=== PATIENT | female | born 1965 | race Caucasian/White ===

== ENCOUNTER 2019-02-18 07:28 | Emergency (ER) | payer MEDICAID ==
[~2019-02-18] VITALS: Ht 162.6 cm; Wt 93.0 kg
[~2019-02-18 07:28] MED LIST: METO25TA4; TRIA25CA; [UNRECOGNIZED DRUG - OTHER]
[2019-02-18] MEDS ORDERED: SODIUM CHLORIDE 0.9% 1,000 ML IV ONE (08:08)
[2019-02-18] MEDS ORDERED: IPRATROPIUM BROM 0.5 MG/2.5ML INH SOL NEB ONE (08:15)
[2019-02-18] MEDS ORDERED: ALBUTEROL SULF 2.5 MG/0.5ML(0.5%) NEB SOLN NEB ONE (08:15)
[2019-02-18 08:27] LABS: Basophils # (auto) 0.1 uL; Basophils % (auto) 0.8 % (0.0-2.0); Eosinophils # (auto) 0.1 uL; Eosinophils % (auto) 0.8 % (0.0-7.0); Hematocrit 39.1 % (36.0-46.0); Hemoglobin 13.3 g/dL (12.2-16.2); Lymphocytes % (auto) 20.2 % (10.0-50.0); Mean Corpuscular Hgb Conc. 34.1 g/dL (32.0-36.0); Mean Corpuscular Volume 93.6 fL (80.0-100.0); Monocytes % (auto) 10.3 % (0.0-12.0); Neutrophils # (auto) 6.7 uL; Neutrophils % (auto) 67.9 % (37.0-80.0); Nucleated Red Blood Cells % 0.1 %; Platelet Count (auto) 290 10^3/uL (140-450); Red Blood Cells 4.17 10^6/uL (4.0-5.20); Red Cell Distribution Width 13.1 % (11.8-14.3); White Blood Cell 9.9 10^3/uL (4.4-10.8)
[2019-02-18 08:43] LABS: Albumin 3.3 g/dL (3.4-5.0); BUN/Creatinine Ratio 15.8; Calcium 8.3 mg/dL (8.5-10.1); Magnesium 1.9 mg/dL (1.6-2.6)
[2019-02-18 09:12] LABS: Bilirubin, Total 0.7 mg/dL (0.2-1.0); Potassium 3.1 mmol/L (3.5-5.1); Total Protein 6.9 g/dL (6.4-8.2)
[2019-02-18 10:21] LABS: Urine Bacteria FEW /hpf (None Seen); Urine Blood Negative /uL (Negative); Urine Mucus FEW (None Seen); Urine Specific Gravity 1.026 (1.001-1.035); Urine WBC 1 /hpf (0 - 5)
[2019-02-18] MEDS ORDERED: POTASSIUM EFFERVESENT TAB 25 MEQ PO ONE (10:45)
[2019-02-18] MEDS ORDERED: ONDANSETRON HCL 4 MG/2 ML VIAL IV ONE (12:45)
[2019-02-18] MEDS ORDERED: SODIUM CHLORIDE 0.9% 1,000 ML IVB ONE (13:08)
[2019-02-18] MEDS ORDERED: POTASSIUM CHL 20 Meq TABLET PO ONE (14:00)
[2019-02-18] MEDS ORDERED: POTASSIUM CHLORIDE 8 MEQ TAB PO ONE (14:09)
[2019-02-18] MEDS ORDERED: POTASSIUM CHL 10 Meq TABLET PO ONE (14:15)
[2019-02-18 15:36] VITALS: BP 162/57
== END 2019-02-18 15:52 | disposition home or self-care (01) ==
LOC: ER 07:28
DX: J45.909 Unspecified asthma, uncomplicated (principal); R07.9 Chest pain, unspecified; E87.6 Hypokalemia; I10 Essential (primary) hypertension; M19.90 Unspecified osteoarthritis, unspecified site; G43.909 Migraine, unspecified, not intractable, without status migrainosus; E46 Unspecified protein-calorie malnutrition; Z68.35 Body mass index [BMI] 35.0-35.9, adult; Z79.899 Other long term (current) drug therapy; Z90.49 Acquired absence of other specified parts of digestive tract
CPT/HCPCS: 36415; 71046; 80053; 81001; 83735; 85025; 87804; 93005; 94640; 96374; 99284; J2405; J7030; J7611; J7644

== ENCOUNTER 2021-04-02 13:45 | Emergency (ER) | payer MEDICARE, MEDICAID ==
[~2021-04-02] VITALS: Ht 162.6 cm; Wt 86.2 kg
[2021-04-02 13:45] VITALS: BP 133/60
[~2021-04-02 13:45] MED LIST changes: +METO25TA36; -METO25TA4
== END 2021-04-02 16:05 | disposition home or self-care (01) ==
LOC: ER 13:45
DX: R21 Rash and other nonspecific skin eruption (principal); E11.9 Type 2 diabetes mellitus without complications; E78.5 Hyperlipidemia, unspecified; I10 Essential (primary) hypertension; Z90.49 Acquired absence of other specified parts of digestive tract; Z79.899 Other long term (current) drug therapy; Z98.890 Other specified postprocedural states

== ENCOUNTER 2023-06-30 08:33 | Inpatient (IN) | payer MEDICARE, MEDICAID ==
[~2023-06-30] VITALS: Ht 162.6 cm; Wt 92.9 kg
[2023-06-30] MEDS ORDERED: ONDANSETRON HCL 4 MG/2 ML VIAL IV ONE (09:15)
[2023-06-30] MEDS ORDERED: SODIUM CHLORIDE 0.9% 500 ML IV ONE (09:15)
[2023-06-30 09:23] LABS: Basophils # (auto) 0.2 10 ^3/uL (0-0.2); Basophils % (auto) 0.9 % (0.0-2.0); Eosinophils # (auto) 0 10 ^3/uL (0-0.8); Eosinophils % (auto) 0.1 % (0.0-7.0); Hemoglobin 15.1 g/dL (12.2-16.2); Lymphocytes # (auto) 4.8 10 ^3/uL (0.4-5.4); Lymphocytes % (auto) 25.3 % (10.0-50.0); Mean Corpuscular Hemoglobin 30.3 pg (28.0-32.0); Mean Corpuscular Hgb Conc. 33.4 g/dL (32.0-36.0); Mean Corpuscular Volume 90.8 fL (80.0-100.0); Monocytes # (auto) 1.6 10 ^3/uL (0-1.3); Monocytes % (auto) 8.6 % (0.0-12.0); Neutrophils # (auto) 12.3 10 ^3/uL (1.6-8.6); Neutrophils % (auto) 65.1 % (37.0-80.0); Nucleated Red Blood Cells % 0.1 %; Red Blood Cells 4.96 10^6/uL (4.0-5.20); Red Cell Distribution Width 13.4 % (11.8-14.3); White Blood Cell 18.8 10^3/uL (4.4-10.8)
[2023-06-30 09:40] LABS: Alanine Aminotransferase 75 U/L (7-40); Albumin 4.7 g/dL (3.2-4.8); Alkaline Phosphatase 101 U/L (46-116); Anion Gap 17 (5-15); Aspartate Aminotransferase 42 U/L (13-40); BUN/Creatinine Ratio 13.7 (10.0-20.0); Blood Urea Nitrogen 20 mg/dL (9-23); Calcium 9.9 mg/dL (8.5-10.1); Carbon Dioxide 20 mmol/L (20-30); Chloride 100 mmol/L (98-107); Glucose 200 mg/dL (74-106); Potassium 3.2 mmol/L (3.5-5.1); Sodium 137 mmol/L (136-145)
[2023-06-30 09:41] LABS: Bilirubin, Total 1.7 mg/dL (0.2-1.0); Total Protein 7.9 g/dL (5.7-8.2)
[2023-06-30] MEDS ORDERED: PROCHLORPERAZINE EDISYLATE 5 MG/ML 2ML VIAL IV ONE (11:00)
[2023-06-30] MEDS ORDERED: MORPHINE SULFATE 10 MG/ML INJ 1ML SDV IV ONE (11:00)
[2023-06-30] MEDS ORDERED: LACTATED RINGER'S 1,000 ML IV ONE (11:00)
[2023-06-30] MEDS ORDERED: IOHEXOL 300 MG/ML 100ML BOTTLE IJ ONE (11:06)
[2023-06-30] MEDS ORDERED: MORPHINE SULFATE INJ 2 MG/ml SYRG IV ONE (11:15)
[2023-06-30 11:21] LABS: Lactic Acid w/Reflex 4.3 mmol/L (0.4-2.0)
[2023-06-30 11:28] LABS: Urine Bacteria MANY /hpf (None Seen); Urine Blood Negative /uL (Negative); Urine Clarity HAZY (Clear); Urine Color Yellow (Yellow); Urine Hyaline Cast MOD /lpf (0 - 2); Urine Mucus FEW (None Seen); Urine Protein, UAD 1+ (Negative); Urine Specific Gravity 1.028 (1.001-1.035); Urine WBC 26 /hpf (0 - 5); Urine pH 5.5 (5.0-8.0)
[2023-06-30 11:54] LABS: Amphetamine Screen, Urine Neg (NEGATIVE); Barbiturate Scree,Urine Neg (NEGATIVE); Benzodiazephine Screen, Urine Neg (NEGATIVE); Cocaine Screen, Urine Neg (NEGATIVE); Opiate Scree,Urine Neg (NEGATIVE)
[2023-06-30 11:55] LABS: Cannabinoid Screen, Urine Pos (NEGATIVE); Phencyclidine Screen, Urine Neg (NEGATIVE)
[2023-06-30] MEDS ORDERED: metroNIDAZOLE 500MG/100ML 100 ML IV ONE (12:30)
[2023-06-30] MEDS ORDERED: CIPROFLOXACIN 400MG/200ML 200 ML IV ONE (12:30)
[2023-06-30] MEDS ORDERED: hydrALAZINE HCL 20 MG/ML VL IV PRN ×2 (12:45→13:00)
[2023-06-30] MEDS ORDERED: POTASSIUM EFFERVESENT TAB 25 MEQ PO ONE (13:00)
[2023-06-30] MEDS ORDERED: PANTOPRAZOLE 40 MG/10 ML VIAL INJ IV ONE (13:00)
[2023-06-30] MEDS ORDERED: SODIUM CHLORIDE 0.9% 1,000 ML IV ONE (13:00)
[2023-06-30] MEDS ORDERED: DEXTROSE (50%) 50ML SYRG IV PRN (13:00)
[2023-06-30] MEDS ORDERED: ONDANSETRON HCL 4 MG/2 ML VIAL IV PRN (13:00)
[2023-06-30] MEDS ORDERED: cefTRIAXone 1GM/50ML D5W 50 ML IV ONE (13:00)
[2023-06-30] MEDS ORDERED: ACETAMINOPHEN 325 MG TAB PO PRN (13:00)
[2023-06-30 13:18] VITALS: PULSE 94; RESP 16; O2SAT 96
[2023-06-30] MEDS: metroNIDAZOLE 500MG/100ML 100 ML IV SCH ×2 (13:53→21:28)
[2023-06-30] MEDS: SODIUM CHLORIDE 0.9% 1,000 ML IV SCH ×2 (15:30→21:29)
[2023-06-30] MEDS: InsuLIN REG 1unit/0.01ml Soln (100units/ml) SC SCH ×2 (17:00→21:29)
[2023-06-30] MEDS: ACCU-CHEK COMFORT CURVE STRIP VI SCH ×2 (17:02→21:28)
[2023-06-30 20:00] VITALS: BP 126/69; PULSE 73; RESP 20; TEMP 98.3; O2SAT 96
[2023-06-30 22:52] VITALS: BP 129/69; PULSE 73; RESP 20; TEMP 98.3; O2SAT 96
[2023-07-01] VITALS (7 sets, daily range): BP systolic 112–137; BP diastolic 61–87; PULSE 58–76; RESP 16–18; TEMP 97.1–98.3; O2SAT 95–98
[2023-07-01 04:45] LABS: Basophils # (auto) 0.1 10 ^3/uL (0-0.2); Basophils % (auto) 0.9 % (0.0-2.0); Eosinophils # (auto) 0 10 ^3/uL (0-0.8); Eosinophils % (auto) 0.3 % (0.0-7.0); Hematocrit 36.6 % (36.0-46.0); Hemoglobin 12.6 g/dL (12.2-16.2); Lymphocytes # (auto) 2.6 10 ^3/uL (0.4-5.4); Lymphocytes % (auto) 26.3 % (10.0-50.0); Mean Corpuscular Hemoglobin 31.2 pg (28.0-32.0); Mean Corpuscular Hgb Conc. 34.3 g/dL (32.0-36.0); Mean Corpuscular Volume 91.1 fL (80.0-100.0); Monocytes % (auto) 10.5 % (0.0-12.0); Neutrophils # (auto) 6.2 10 ^3/uL (1.6-8.6); Red Blood Cells 4.02 10^6/uL (4.0-5.20); Red Cell Distribution Width 13.7 % (11.8-14.3); White Blood Cell 9.9 10^3/uL (4.4-10.8)
[2023-07-01 05:01] LABS: Alanine Aminotransferase 61 U/L (7-40); Albumin 3.7 g/dL (3.2-4.8); Alkaline Phosphatase 71 U/L (46-116); Anion Gap 8 (5-15); Aspartate Aminotransferase 35 U/L (13-40); BUN/Creatinine Ratio 13.6 (10.0-20.0); Bilirubin, Total 0.9 mg/dL (0.2-1.0); Blood Urea Nitrogen 15 mg/dL (9-23); Calcium 8.5 mg/dL (8.5-10.1); Carbon Dioxide 28 mmol/L (20-30); Chloride 106 mmol/L (98-107); Glucose 83 mg/dL (74-106); Potassium 3.4 mmol/L (3.5-5.1); Sodium 142 mmol/L (136-145)
[2023-07-01] MEDS: SODIUM CHLORIDE 0.9% 1,000 ML IV SCH ×3 (05:40→22:24)
[2023-07-01] MEDS: metroNIDAZOLE 500MG/100ML 100 ML IV SCH ×3 (06:31→22:19)
[2023-07-01] MEDS: InsuLIN REG 1unit/0.01ml Soln (100units/ml) SC SCH ×2 (06:38→11:09)
[2023-07-01] MEDS: ACCU-CHEK COMFORT CURVE STRIP VI SCH ×2 (06:51→11:07)
[2023-07-01] MEDS ORDERED: POTASSIUM EFFERVESENT TAB 25 MEQ PO ONE (09:30)
[2023-07-01] MEDS: PANTOPRAZOLE 40 MG/10 ML VIAL INJ IV SCH (09:54)
[2023-07-01] MEDS: cefTRIAXone 1GM/50ML D5W 50 ML IV SCH (09:58)
[2023-07-01] MEDS ORDERED: ENOXAPARIN SOD 40 MG/0.4 ML SYRINGE SC SCH (10:00)
[2023-07-01] MEDS ORDERED: MYCO500T3 PO (11:25)
[2023-07-01] MEDS ORDERED: OMEP20TA PO ×2 (11:25→16:37)
[2023-07-01] MEDS ORDERED: ATOR20TA50 PO ×2 (11:25→16:37)
[2023-07-01 12:24] LABS: Hepatitis A Ab IgM Negative; Hepatitis B Core IgM Negative
[2023-07-01 12:25] LABS: Hepatitis C Antibody Negative (Negative)
[2023-07-01 13:44] LABS: Hepatitis B Surface Antigen Positive (Negative)
[2023-07-01] MEDS: HYDROcodone-ACET 5/325MG TAB PO PRN (13:54)
[2023-07-01] MEDS ORDERED: MYCO500T PO (16:37)
[2023-07-01] MEDS ORDERED: SEMA2INJ3 SC (16:37)
[2023-07-01] MEDS ORDERED: LISI-285 PO (16:37)
[2023-07-02 05:23] VITALS: BP 137/96; PULSE 64; RESP 18; TEMP 97.8; O2SAT 94
[2023-07-02] MEDS: metroNIDAZOLE 500MG/100ML 100 ML IV SCH ×3 (05:34→22:08)
[2023-07-02] MEDS: SODIUM CHLORIDE 0.9% 1,000 ML IV SCH ×2 (06:48→15:00)
[2023-07-02] MEDS: cefTRIAXone 1GM/50ML D5W 50 ML IV SCH (08:42)
[2023-07-02] MEDS: PANTOPRAZOLE 40 MG/10 ML VIAL INJ IV SCH (08:43)
[2023-07-02 09:14] VITALS: BP 142/77; PULSE 64; RESP 18; TEMP 97.7; O2SAT 95
[2023-07-02 13:00] VITALS: BP 149/84; PULSE 77; RESP 19; TEMP 98.1; O2SAT 97
[2023-07-02 17:00] VITALS: BP 168/87; PULSE 79; RESP 18; TEMP 97.3; O2SAT 97
[2023-07-02 20:00] VITALS: PULSE 64; RESP 18; O2SAT 95
[2023-07-02 22:00] VITALS: BP 149/99; PULSE 78; RESP 18; TEMP 98.4; O2SAT 96
[2023-07-03] MEDS: SODIUM CHLORIDE 0.9% 1,000 ML IV SCH ×3 (00:58→13:59)
[2023-07-03 05:00] VITALS: BP 148/94; PULSE 62; RESP 17; TEMP 97.6; O2SAT 99
[2023-07-03] MEDS: metroNIDAZOLE 500MG/100ML 100 ML IV SCH ×3 (05:55→21:55)
[2023-07-03 08:00] VITALS: O2SAT 97
[2023-07-03] MEDS: PANTOPRAZOLE 40 MG/10 ML VIAL INJ IV SCH (09:57)
[2023-07-03] MEDS: cefTRIAXone 1GM/50ML D5W 50 ML IV SCH (09:57)
[2023-07-03 10:43] VITALS: BP 146/77; PULSE 71; RESP 19; TEMP 98.3; O2SAT 97
[2023-07-03 14:49] VITALS: BP 159/89; PULSE 76; RESP 19; TEMP 98.4; O2SAT 98
[2023-07-03] MEDS: HYDROcodone-ACET 5/325MG TAB PO PRN (16:41)
[2023-07-03 16:47] VITALS: BP 149/77; PULSE 75; RESP 19; TEMP 98.7; O2SAT 98
[2023-07-03 22:00] VITALS: BP 141/83; PULSE 70; RESP 19; TEMP 98.1; O2SAT 96
[2023-07-04] MEDS ORDERED: LEVO500T91 PO (11:57)
[2023-07-04] MEDS ORDERED: MET500T PO (11:57)
[2023-07-04 16:29] VITALS: BP 149/74; PULSE 79; RESP 19; TEMP 98; O2SAT 97
[2023-07-04 16:30] VITALS: BP 146/74; PULSE 79; RESP 19; TEMP 98.1; O2SAT 97
[2023-07-11 05:07] LABS: HBV as IU/mL HBV DNA not detected IU/mL (.)
== END 2023-07-04 17:18 | disposition home or self-care (01) | DRG 871 ==
LOC: ER 08:33 → OVERFLOW 13:00 → CENTRAL 16:22
PROVIDERS: ADMIT Nurse Practitioner Family; ATTEND Family Medicine
DX: A41.9 Sepsis, unspecified organism (principal); N17.0 Acute kidney failure with tubular necrosis; N39.0 Urinary tract infection, site not specified; B19.10 Unspecified viral hepatitis B without hepatic coma; A05.9 Bacterial foodborne intoxication, unspecified; E78.00 Pure hypercholesterolemia, unspecified; E87.6 Hypokalemia; F12.10 Cannabis abuse, uncomplicated; K76.0 Fatty (change of) liver, not elsewhere classified; I10 Essential (primary) hypertension; E11.9 Type 2 diabetes mellitus without complications; M19.90 Unspecified osteoarthritis, unspecified site; Z82.49 Family history of ischemic heart disease and other diseases of the circulatory system; Z90.49 Acquired absence of other specified parts of digestive tract; Z71.51 Drug abuse counseling and surveillance of drug abuser
CPT/HCPCS: 36415; 74177; 76705; 80053; 80074; 80307; 81001; 82962; 83036; 83605; 83690; 83930; 84484; 85025; 86703; 86706; 87040; 87086; 87088; 87186; 87517; 93005; 96365; 96375; C9113; G0378; J0696; J2405; J3490